=== PATIENT | female | born 1965 | race Caucasian/White ===

== ENCOUNTER 2024-01-17 12:34 | Emergency (ER) | payer BC ==
[2024-01-17 13:13] VITALS: RESP 16; TEMP 97.8; BMI 20.8
[2024-01-17 14:14] LABS: HEMATOCRIT 40.8 % (32.4-45.2); HEMOGLOBIN 13.2 G/dL (10.7-15.3); MCH 32.5 pg (25.7-33.7); MCHC 32.4 g/dl (32.0-36.0); MEAN CELL VOLUME 100.3 fl (80-96); MEAN PLT VOLUME 7.7 fl (7.5-11.1); PLATELET COUNT 355.7 10^3/uL (134-434); RBC 4.07 10^6/uL (3.60-5.2); WHITE BLOOD COUNT 8.1 10^3/uL (4.0-10.8)
[2024-01-17 14:21] LABS: ALBUMIN 4.1 g/dl (3.4-5.0); BILIRUBIN,TOTAL 0.7 mg/dl (0.2-1); CALCIUM 9.5 mg/dl (8.5-10.1); CREATININE 0.8 mg/dl (0.6-1.3); MAGNESIUM 2.1 mg/dL (1.8-2.4); PHOSPHOROUS 3.9 (2.5-4.9); POTASSIUM 4.2 mmol/L (3.5-5.1)
[2024-01-17 14:22] LABS: PLATELET ESTIMATE ADEQUATE
[2024-01-17 15:52] VITALS: BP 120/82; PULSE 86
== END 2024-01-17 15:59 | disposition home or self-care (01) ==
LOC: FER 12:34
DX: R41.0 Disorientation, unspecified (principal); R00.0 Tachycardia, unspecified; R25.1 Tremor, unspecified; F10.939 Alcohol use, unspecified with withdrawal, unspecified; W19.XXXA Unspecified fall, initial encounter
CPT/HCPCS: 36415; 70450-TC; 71045-TC-FY; 80053; 81003; 81015; 83735; 84100; 84443; 85027; 87086; 93005; 99285-25